=== PATIENT | male | born 1965 | race Caucasian/White ===

== ENCOUNTER 2021-06-11 23:25 | Emergency (ER) | payer OTHER ==
[~2021-06-11] VITALS: Ht 175.3 cm; Wt 81.7 kg
[2021-06-12] MEDS ORDERED: DEXA4 PO (01:40)
[2021-06-12] MEDS ORDERED: ALBU90OI INH (01:40)
== END 2021-06-12 02:14 | disposition home or self-care (01) ==
LOC: ER 23:25
DX: U07.1 COVID-19 (principal); E11.9 Type 2 diabetes mellitus without complications
CPT/HCPCS: 71045; 96374; 96375; 99283-25; J1100; J1885; J7030